=== PATIENT | male | born 1995 | race African-American/Black ===

== ENCOUNTER 2021-07-09 05:43 | Emergency (ER) | payer OTHER ==
[~2021-07-09] VITALS: Ht 175.3 cm; Wt 100.0 kg
[2021-07-09] MEDS: LIDOCAINE W/EPINEPHRINE 1% 20ML VIAL SC ONE (06:30)
--- OUTSIDE RECORDS SUMMARY | 2021-07-09 06:58 | CCD ---
Author Author [facility] Organization [facility] Address Unknown Phone Unavailable Care Team Providers Care Sanitary Engineer Name Role Phone Maring, Landen PA Unavailable Unavailable Maring, Landen PA Unavailable Unavailable Maring, Landen PA Unavailable Unavailable Maring, Landen PA Unavailable Unavailable Maring, Landen PA Unavailable Unavailable Maring, Landen PA Unavailable Unavailable Maring, Landen PA Unavailable Unavailable Maring, Landen PA Unavailable Unavailable Maring, Landen PA Unavailable Unavailable Maring, Landen PA Unavailable Unavailable Maring, Landen PA Unavailable Unavailable Maring, Landen PA Unavailable Unavailable Maring, Landen PA Unavailable Unavailable Maring, Landen PA Unavailable Unavailable Maring, Landen PA Unavailable Unavailable Maring, Landen PA Unavailable Unavailable ODEN, G EDWARD RPA Unavailable Unavailable ODEN, G EDWARD RPA Unavailable Unavailable ODEN, G EDWARD RPA Unavailable Unavailable ODEN, G EDWARD RPA Unavailable Unavailable ODEN, G EDWARD RPA Unavailable Unavailable ODEN, G EDWARD RPA Unavailable Unavailable ODEN, G EDWARD RPA Unavailable Unavailable ODEN, G EDWARD RPA Unavailable Unavailable ODEN, G EDWARD RPA Unavailable Unavailable ODEN, G EDWARD RPA Unavailable Unavailable ODEN, G EDWARD RPA Unavailable Unavailable ODEN, G EDWARD RPA Unavailable Unavailable ODEN, G EDWARD RPA Unavailable Unavailable ODEN, G EDWARD RPA Unavailable Unavailable ODEN, G EDWARD RPA Unavailable Unavailable ODEN, G EDWARD RPA Unavailable Unavailable ODEN, G EDWARD RPA Unavailable Unavailable ODEN, G EDWARD RPA Unavailable Unavailable ODEN, G EDWARD RPA Unavailable Unavailable ODEN, G EDWARD RPA Unavailable Unavailable ODEN, G EDWARD RPA Unavailable Unavailable ODEN, G EDWARD RPA Unavailable Unavailable ODEN, G EDWARD RPA Unavailable Unavailable ODEN, G EDWARD RPA Unavailable Unavailable ODEN, G EDWARD RPA Unavailable Unavailable ODEN, G EDWARD RPA Unavailable Unavailable ODEN, G EDWARD RPA Unavailable Unavailable ODEN, G EDWARD RPA Unavailable Unavailable ODEN, G EDWARD RPA Unavailable Unavailable ODEN, G EDWARD RPA Unavailable Unavailable ODEN, G EDWARD RPA Unavailable Unavailable ODEN, G EDWARD RPA Unavailable Unavailable ODEN, G EDWARD RPA Unavailable Unavailable ODEN, G EDWARD RPA Unavailable Unavailable ODEN, G EDWARD RPA Unavailable Unavailable ODEN, G EDWARD RPA Unavailable Unavailable ODEN, G EDWARD RPA Unavailable Unavailable Brian Lynn MD Unavailable Unavailable Brian Lynn MD Unavailable Unavailable Brian Lynn MD Unavailable Unavailable Brian Lynn MD Unavailable Unavailable Brian Lynn MD Unavailable Unavailable Brian Lynn MD Unavailable Unavailable Brian Lynn MD Unavailable Unavailable Brian Lynn MD Unavailable Unavailable Brian Lynn MD Unavailable Unavailable Brian Lynn MD Unavailable Unavailable Brian Lynn MD Unavailable Unavailable Brian Lynn MD Unavailable Unavailable Brian Lynn MD Unavailable Unavailable Brian Lynn MD Unavailable Unavailable Brian Lynn MD Unavailable Unavailable Brian Lynn MD Unavailable Unavailable Brian Lynn MD Unavailable Unavailable Brian Lynn MD Unavailable Unavailable Brian Lynn MD Unavailable Unavailable Brian Lynn MD Unavailable Unavailable Brian Lynn MD Unavailable Unavailable Brian Lynn MD Unavailable Unavailable Brian Lynn MD Unavailable Unavailable Brian Lynn MD Unavailable Unavailable Brian Lynn MD Unavailable Unavailable Re-disclosure Warning The records that you are about to access may contain information from federally-assisted alcohol or drug abuse programs. If such information is present, then the following federally mandated warning applies: This information has been disclosed to you from records protected by federal confidentiality rules (42 CFR part 2). The federal rules prohibit you from making any further disclosure of this information unless further disclosure is expressly permitted by the written consent of the person to whom it pertains or as otherwise permitted by 42 CFR part 2. A general authorization for the release of medical or other information is NOT sufficient for this purpose. The Federal rules restrict any use of the information to criminally investigate or prosecute any alcohol or drug abuse patient.The records that you are about to access may contain highly sensitive health information, the redisclosure of which is protected by Article 27-F of the [facility] Public Health law. If you continue you may have access to information: Regarding HIV / AIDS; Provided by facilities licensed or operated by the [facility] Office of Mental Health; or Provided by the [facility] Office for People With Developmental Disabilities. If such information is present, then the following [facility] mandated warning applies: This information has been disclosed to you from confidential records which are protected by state law. State law prohibits you from making any further disclosure of this information without the specific written consent of the person to whom it pertains, or as otherwise permitted by law. Any unauthorized further disclosure in violation of state law may result in a fine or retirement sentence or both. A general authorization for the release of medical or other information is NOT sufficient authorization for further disc losure. Encounters Encounter Providers Location Date Indications Data Source(s ) Outpatient Attender: KATERINA DOEN RPA 02/01 04:47:10 PM EDT - 02/01/2021 04:58:04 PM EDT [facility] ([facility] ) Outpatient Attender: Landen STEVEN 01/31/20 10:41:35 AM EDT - 01/30/2021 11:17:09 AM EDT [facility] ([facility] ) Outpatient Attender: Juani Lynn MD 0 12/30/2020 03:49:22 PM EDT - 12/30/2020 05:24:36 PM EDT [facility]) Medications No Information Insurance Providers Payer name Policy type / Coverage type Policy ID Covered green party ID Covered green party's relationship to snyder Policy [place] Plan Information 'S [employer] [id number] SP [id number] [employer] emp [id number] Employee [id number] [facility] emp [id number] Employee [id number] Problems, Conditions, and Diagnoses No Information Surgeries/Procedures No Information Results No Information Social History No Information
[2021-07-09] MEDS: BOOSTRIX/ADACEL VACCINE (DIPHTH/PERTUSS/ACELL/TETANUS) 0.5ML SYR IM ONE (07:19)
[2021-07-09 07:30] VITALS: BP 127/90
== END 2021-07-09 07:33 | disposition home or self-care (01) ==
LOC: M ED 05:43
DX: S51.812A Laceration without foreign body of left forearm, initial encounter (principal); W26.0XXA Contact with knife, initial encounter; Y92.009 Unspecified place in unspecified non-institutional (private) residence as the place of occurrence of the external cause; Y93.89 Activity, other specified; Y99.8 Other external cause status; Z87.828 Personal history of other (healed) physical injury and trauma

== ENCOUNTER → 2021-09-18 | Outpatient (REF) | LOC: M LAB 15:28 | PROVIDERS: ATTEND Nurse Practitioner Adult Health | DX: Z02.89 Encounter for other administrative examinations (principal) ==